=== PATIENT | male | born 1970 | race Caucasian/White ===

== ENCOUNTER 2016-07-15 12:22 | Emergency (ER) | payer OTHER ==
[~2016-07-15] VITALS: Ht 175.3 cm; Wt 63.5 kg
[2016-07-15] MEDS ORDERED: SODIUM CHLORIDE 0.9% 1,000 ML IVB ONE (16:16)
[2016-07-15 16:21] LABS: Urine RBC None Seen /hpf (0 - 3)
[2016-07-15 16:24] LABS: Urine Bilirubin Negative (Negative); Urine Blood Negative /uL (Negative); Urine Color Yellow (Yellow); Urine Ketone Negative (Negative); Urine Nitrite Negative (Negative); Urine Urobilinogen Normal (Negative)
[2016-07-15 16:46] LABS: Basophils # (auto) 0 uL; Basophils % (auto) 0.6 % (0.0-2.0); Eosinophils # (auto) 0.1 uL; Eosinophils % (auto) 1.5 % (0.0-7.0); Hematocrit 43.6 % (41.0-53.0); Hemoglobin 14.3 g/dL (13.5-17.5); Lymphocytes # (auto) 2.2 uL; Lymphocytes % (auto) 30.7 % (10.0-50.0); Mean Corpuscular Hemoglobin 29.2 pg (28.0-32.0); Mean Corpuscular Hgb Conc. 32.9 g/dL (32.0-36.0); Mean Corpuscular Volume 88.8 fL (80.0-100.0); Mean Platelet Volume 7.3 fL (7.4-10.4); Monocytes # (auto) 0.5 uL; Monocytes % (auto) 6.4 % (0.0-12.0); Neutrophils # (auto) 4.4 uL; Neutrophils % (auto) 60.8 % (37.0-80.0); Platelet Count (auto) 298 10^3/uL (140-450); Red Cell Distribution Width 12.8 % (11.6-16.0); White Blood Cell 7.2 10^3/uL (4.4-10.8)
[2016-07-15 17:08] LABS: Albumin 3.5 g/dL (3.4-5.0); BUN/Creatinine Ratio 16.2; Bilirubin, Total 0.3 mg/dL (0.2-1.0); Calcium 8.7 mg/dL (8.5-10.1); Magnesium 2.1 mg/dL (1.6-2.6); Potassium 3.8 mmol/L (3.5-5.1); Total Protein 6.5 g/dL (6.4-8.2)
[2016-07-15 17:20] LABS: INR 0.97 (0.9-1.15); Partial Thromboplastin Time 22.5 sec (22.64-33.71)
[2016-07-15] MEDS ORDERED: IBUPROFEN 600 MG TAB PO ONE ×2 (18:00→18:09)
[2016-07-15 18:21] LABS: Urine Glucose 4+ mg/dL (Normal)
[2016-07-15 18:26] VITALS: BP 136/97
== END 2016-07-15 18:55 | disposition home or self-care (01) ==
LOC: ER 12:22
DX: E11.65 Type 2 diabetes mellitus with hyperglycemia (principal); F17.210 Nicotine dependence, cigarettes, uncomplicated; M79.671 Pain in right foot; M79.672 Pain in left foot
CPT/HCPCS: 36415; 71010; 80053; 81001; 82962; 83735; 85025; 85049; 85610; 85730; 94761; 99285; J7030